=== PATIENT | female | born 1955 | race Caucasian/White ===

== ENCOUNTER → 2021-10-09 11:57 | Outpatient (CLI) | payer MEDICARE, SELFPAY ==
--- NOTE | 2021-10-09 12:06 | DI.MRI.S_ITS ---
PROCEDURE: MRFOOT LT WO CON INDICATIONS: FOOT PAIN TECHNIQUE: Noncontrast sagittal T1 spin echo and T2 fast spin echo with fat saturation, long-axis T1 spin echo and T2 fast spin echo with fat saturation, short-axis T1 spin echo and T2 fast spin echo with fat saturation through the forefoot. COMPARISON: None. FINDINGS: Image quality: Excellent. Bones and joints: There is marrow edema involving medial sesamoid of 1st metatarsal head without discrete fracture line. No other area of abnormal marrow signal. No metatarsal stress fractures. Osteoarthritic changes are noted throughout midfoot and forefoot joints more prominent involving 1st MTP joint , 2nd MTP joint and 2nd through 4th TMT joints with joint space narrowing, subchondral sclerosis and cyst formations. Nonspecific intraosseous cyst formation involving 3rd metatarsal base is seen. Soft tissues: The visualized plantar foot muscles demonstrate normal signal and bulk. Visualized flexor and extensor tendons appear intact, without tenosynovitis. The distal insertions of the peroneus brevis and longus tendons appear intact. The principal Lisfranc ligament appears intact. No soft tissue ganglion cysts or bursal fluid collections. Sagittal images demonstrate signal abnormality and discontinuity along plantar plate in the region of medial sesamoid phalangeal ligament. IMPRESSION: 1. Osteoarthritic changes are noted in midfoot and forefoot joints as above. No fracture or dislocation. No metatarsal stress fracture. 2. Suggestion of mild contusion involving medial sesamoid of 1st metatarsal head with suggestion of plantar plate tear in the region of distal medial sesamoid phalangeal ligament. Rest of the forefoot tendons and ligaments are grossly intact. Dictated by: Emile Rodriguez M.D. on 10/09/2021 at 13:20 Approved by: Emile Rodriguez M.D. on 10/09/2021 at 13:32
== END ==
PROVIDERS: PCP Physician Assistant Medical; Referring Provider Podiatrist; Visit Provider Podiatrist
DX: M79.672 Pain in left foot (principal)
CPT/HCPCS: 73718